=== PATIENT | male | born 1955 | race Caucasian/White ===

== ENCOUNTER 2017-12-03 14:15 | Emergency (ER) | payer OTHER ==
[~2017-12-03] VITALS: Ht 182.9 cm; Wt 164.0 kg
[2017-12-03 14:21] VITALS: TEMP 37; Ht 182.9 cm; Wt 164.0 kg
[2017-12-03] MEDS ORDERED: SODIUM CHLORIDE 0.9% 1000ML 1,000 ML IV STA (14:29)
[2017-12-03] MEDS ORDERED: METOCLOPRAMIDE HCL INJ 5 MG/ML 2 ML VIAL IV. STA (14:29)
--- NOTE | 2017-12-03 14:31 | EMERGENCY ROOM VISIT NOTE ---
History Report prepared by Marlon: Nikki Nichole Under the Supervision of: Dr. Bryan Hicks M.D. First contact with patient: 14:19 Chief Complaint: RECTAL BLEEDING Stated Complaint: ABDOMINAL PAIN/BACK PAIN/ RECTAL BLEEDING History of Present Illness The patient is a 62 year old white male with a past medical history of Parkinson 's and hemorrhoids who presents to the ED with a cc of constant rectal bleeding beginning at 1000 this morning. Positive not being able to urinate. Negative fevers, chills, nausea, vomiting recent trauma, history of colon cancer. He states he has a blockage which he describes as "severe constipation." He denies any pain but does note he has abdominal pressure. 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 He reports he had a colonoscopy 2 years ago but there were no significant findings. Source of History: patient Onset: 1000 this morning Position: abdomen, other (rectum) Quality: pressure Timing: constant Modifying Factors (Worsening): other (straining) Associated Symptoms: + urinary symptoms (not being able to urinate), No fevers, No chills, No nausea, No vomiting Note: Negative recent trauma, history of colon cancer Review of Systems See HPI for pertinent positives and negatives. A total of ten systems were reviewed and were otherwise negative. Past Medical & Surgical Medical Problems: (1) Parkinson disease Family History Omited secondary to age Social History Smoking Status: Former Smoker Smokeless Tobacco Use: Unknown Housing Status: lives alone Current/Historical Medications Scheduled Alfuzosin Hcl (Uroxatral), 10 MG PO DAILY Atorvastatin (Lipitor), Unknown Dose PO DAILY Carbidopa-Levodopa (Rytary 36.25-145 mg), 1 CAP PO QID Pramipexole Dihydrochloride (Mirapex), 0.75 MG PO DAILY Rasagiline Mesylate (Azilect), Unknown Dose PO DAILY Allergies Coded Allergies: No Known Allergies (Unverified , 12/03/17) Physical Exam Vital Signs Date Time Temp Pulse Resp B/P (MAP) Pulse Ox O2 Delivery O2 Flow Rate FiO2 12/03/17 15:05 93 Room Air 12/03/17 14:21 37.0 97 20 122/90 93 Room Air Physical Exam GENERAL: Awake, alert, well-appearing, NAD. Wearing glasses. Obese. HENT: Normocephalic, atraumatic. EYES: Normal conjunctiva. Sclera non-icteric. PERRL. No anisocoria. NECK: Supple. No nuchal rigidity. FROM. RESPIRATORY: CTAB, no rhonchi, wheezing, crackles CARDIAC: RRR, no MRG ABDOMEN: Soft, NTND, BS+ RECTAL: MSK: No chest wall TTP, 1+ LE edema NEURO: GCS 15, CN 2-12 intact, moves all 4s on command. LUE resting tremor. SKIN: No rash or jaundice noted. Medical Decision & Procedures ER Provider Diagnostic Interpretation: Radiology results as stated below per my review and radiologist interpretation: KUB CLINICAL HISTORY: Constipation. COMPARISON STUDY: None. FINDINGS: There is a large amount of stool within the rectum. A moderate amount stool is noted within the colon. There is no evidence for a bowel obstruction. IMPRESSION: 1. No evidence for a bowel obstruction. 2. Large amount of stool within the rectum and moderate amount of stool within the colon. Electronically signed by: Adrián Frias M.D. 12/03/2017 3:44 PM Laboratory Results 12/03/17 14:40 Red Blood Count 4.61, Mean Corpuscular Volume 88.9, Mean Corpuscular Hemoglobin 30.6, Mean Corpuscular Hemoglobin Concent 34.4, Mean Platelet Volume 10.2, Neutrophils (%) (Auto) 87.5, Lymphocytes (%) (Auto) 6.9, Monocytes (%) (Auto) 5.1, Eosinophils (%) (Auto) 0.3, Basophils (%) (Auto) 0.1, Neutrophils # (Auto) 8.42, Lymphocytes # (Auto) 0.66, Monocytes # (Auto) 0.49, Eosinophils # (Auto) 0.03, Basophils # (Auto) 0.01 12/03/17 14:41 Test 12/03/17 14:40 12/03/17 14:41 12/03/17 15:32 White Blood Count 9.62 K/uL (4.8-10.8) Red Blood Count 4.61 M/uL (4.7-6.1) Hemoglobin 14.1 g/dL (14.0-18.0) Hematocrit 41.0 % (42-52) Mean Corpuscular Volume 88.9 fL (80-100) Mean Corpuscular Hemoglobin 30.6 pg (25-34) Mean Corpuscular Hemoglobin Concent 34.4 g/dl (32-36) Platelet Count 169 K/uL (130-400) Mean Platelet Volume 10.2 fL (7.4-10.4) Neutrophils (%) (Auto) 87.5 % Lymphocytes (%) (Auto) 6.9 % Monocytes (%) (Auto) 5.1 % Eosinophils (%) (Auto) 0.3 % Basophils (%) (Auto) 0.1 % Neutrophils # (Auto) 8.42 K/uL (1.4-6.5) Lymphocytes # (Auto) 0.66 K/uL (1.2-3.4) Monocytes # (Auto) 0.49 K/uL (0.11-0.59) Eosinophils # (Auto) 0.03 K/uL (0-0.5) Basophils # (Auto) 0.01 K/uL (0-0.2) RDW Standard Deviation 44.0 fL (36.4-46.3) RDW Coefficient of Variation 13.5 % (11.5-14.5) Immature Granulocyte % (Auto) 0.1 % Immature Granulocyte # (Auto) 0.01 K/uL (0.00-0.02) Prothrombin Time 10.7 SECONDS (9.0-12.0) Prothromb Time International Ratio 1.0 (0.9-1.1) Activated Partial Thromboplast Time 28.7 SECONDS (21.0-31.0) Partial Thromboplastin Ratio 1.1 Anion Gap 9.0 mmol/L (3-11) Est Creatinine Clear Calc Drug Dose 114.6 ml/min Estimated GFR () 86.8 Estimated GFR (Non- 74.8 BUN/Creatinine Ratio 22.1 (10-20) Calcium Level 8.7 mg/dl (8.5-10.1) Total Bilirubin 0.8 mg/dl (0.2-1) Direct Bilirubin 0.2 mg/dl (0-0.2) Aspartate Amino Transf (AST/SGOT) 21 U/L (15-37) Alanine Aminotransferase (ALT/SGPT) 9 U/L (12-78) Alkaline Phosphatase 90 U/L (45-117) Total Protein 6.9 gm/dl (6.4-8.2) Albumin 3.8 gm/dl (3.4-5.0) Lipase 275 U/L (73-393) Urine Color DK YELLOW Urine Appearance CLEAR (CLEAR) Urine pH 5.5 (4.5-7.5) Urine Specific [place] 1.025 (1.000-1.030) Urine Protein NEG (NEG) Urine Glucose (UA) NEG (NEG) Urine Ketones 1+ (NEG) Urine Occult Blood NEG (NEG) Urine Nitrite NEG (NEG) Urine Bilirubin NEG (NEG) Urine Urobilinogen NEG (NEG) Urine Leukocyte Esterase NEG (NEG) Urine WBC (Auto) 1-5 /hpf (0-5) Urine RBC (Auto) 0-4 /hpf (0-4) Urine Hyaline Casts (Auto) 1-5 /lpf (0-5) Urine Epithelial Cells (Auto) 10-20 /lpf (0-5) Urine Bacteria (Auto) NEG (NEG) Laboratory results reviewed by me Medications Administered Medications (Trade) Dose Ordered Sig/Ky Route Start Time Stop Time Status Last Admin Dose Admin Sodium Chloride 1,000 ml @ 999 mls/hr Q1H1M STAT IV 12/03/17 14:29 12/03/17 15:29 DC 12/03/17 14:55 999 MLS/HR Metoclopramide HCl (Reglan Inj) 10 mg NOW STAT IV. 12/03/17 14:29 12/03/17 14:32 DC 12/03/17 14:55 10 MG Senna/Docusate Sodium (Senokot S Tab) 1 tab NOW ONCE PO 12/03/17 16:00 12/03/17 16:01 DC 12/03/17 16:31 1 TAB Sodium Biphosphate/ Sodium Phosphate (Fleet Enema) 132 ml NOW STAT MA 12/03/17 15:57 12/03/17 15:59 DC 12/03/17 16:31 132 ML Lactulose (Chronulac Syrup) 30 gm NOW STAT PO 12/03/17 15:57 12/03/17 15:59 DC 12/03/17 16:31 30 GM ECG Per My Interpretation Indication: other (GI bleed) Rate (beats per minute): 93 Rhythm: sinus rhythm Findings: 1st degree AV block, T-wave inversion (lead III and AVF), other ( normal axis) Comparison ECG Date: no prior available ED Course 1425: The patient was evaluated in room B9. A complete history and physical exam was performed. 1620: I reevaluated on the patient at this time. He had a bowel movement and he feels much better. Discussed results and discharge instructions: He verbalized understanding and agreement. The patient is ready for discharge. Medical Decision The patient is a 62 year old white male with a past medical history of hemorrhoids and Parkinson's who presents to the ED with a cc of constant rectal bleeding beginning at 1000 this morning. Nursing notes reviewed. Ancillary studies and prior records reviewed. Differential diagnosis: Etiologies such as diverticulosis, AVM, coagulopathy, colitis, inflammatory bowel disease, malignancy, Ondina-Alvarado tear, esophagitis, peptic ulcer disease , variceal bleed, gastritis, epistaxis, fissure, hemorrhoids, as well as others were entertained. Patient was seen and evaluated the bedside. The patient is complaining of some mild abdominal pressure and states that he has been fairly constipated last bowel movement 2 days prior. The patient states he is unsure as to whether or not he has passed gas in the last day. The patient does not have any abdominal tenderness. Patient states that this is a common side effect given to his parkinsonian meds. The patient noticed that he has been trying to strain and subsequently noted some blood on the stool as well as on the toilet paper. He states it is bright red in nature. Patient denies any recent trauma. Patient denies nausea vomiting or fevers. Patient did have blood work completed along with KUB. Patient was given fluids as well as some Reglan. He was given only 1 dose as this is an anti- dopaminergic. I believe this is reasonable given the patient's persistent constipation. The patient states he is only taking stool softeners at home. Patient's hemoglobin platelet count and coagulation studies are normal. Given this I do not believe he requires a digital rectal exam. I did do an external show that the patient does have a 2 external hemorrhoids no evidence of any fissures. The patient did have a subsequent bowel movement was feeling much improved. I believe the patient is suitable for outpatient follow-up treatment at this time. Patient was given additional recommendations for constipation. Patient was also given recommendations and warning signs which to return if he has worsening bleeding. Patient was given strict follow-up, discharge, and return precautions. All questions were answered. Patient was deemed suitable for outpatient follow-up at this time. Patient agreed with the plan of care and was safely discharged home. Medication Reconcilliation Current Medication List: was personally reviewed by me Blood Pressure Screening Patient's blood pressure: Normal blood pressure Blood pressure disposition: Did not require urgent referral Impression Primary Impression: Rectal bleeding Additional Impressions: Hemorrhoids Constipation Scribe Attestation The scribe's documentation has been prepared under my direction and personally reviewed by me in its entirety. I confirm that the note above accurately reflects all work, treatment, procedures, and medical decision making performed by me. Departure Information Dispostion Home / Self-Care Referrals No Doctor, Assigned (PCP) Forms HOME CARE DOCUMENTATION FORM, IMPORTANT VISIT INFORMATION, WORK / SCHOOL INSTRUCTIONS Patient Instructions Bleeding Rectal, ED Constipation, ED Hemorrhoids, My [facility] Additional Instructions Please return to the emergency department if you have worsening or recurrent symptoms not amenable to at-home treatment. Please call for a follow-up appointment with her primary care physician. Please take your medications as prescribed. If you have other concerns and/or complaints please feel free to also call your primary care physician's office or return the ED for further evaluation, management, and treatment. You may take 600 mg Ibuprofen every 6 hours as needed for pain/fever with food unless told by your physician not to take NSAIDs. You may take tylenol 650 mg every 6 hours as needed for pain/fever unless told by your physician to not take it or have liver problems. You may take motrin and tylenol separately or at the same time. Take your medications as prescribed. For constipation please consider hydrating liberally with clear liquids, high- fiber diet, leafy greens. Please avoid antihistamines and narcotic medications. You may also consider stool softeners like docusate and senna, laxatives like magnesium citrate or lactulose, suppositories, and/or enemas. Also try not to strain to have a bowel movement and use soft toilet paper. There is strong evidence from multiple randomized trials that increased fiber intake improves symptoms of hemorrhoid bleeding and mild prolapse. You should ingest 20 to 30 g of insoluble fiber per day and drink plenty of water (1.5 to 2 liters per day). Both are necessary to produce regular, soft stools, which reduce straining at defecation. It could take six weeks to fully realize the beneficial effect of fiber. Many commercially available fiber supplements are available to reduce constipation. Many contain either psyllium or methylcellulose. You should refrain from straining or lingering on the toilet. Avoid heavy lifting, sneezing/coughing w/ mouth closed - but cover your mouth. Patients should have regular physical exercise. Limit your intake of fatty foods and alcohol, which can exacerbate constipation. Topical steroids such as Preparation H or Anusol may help. Sitz baths may also help. Apply to your hemorrhoids as described on the packaging. You have been examined and treated today on an emergency basis only. This is not a substitute for, or an effort to provide, complete comprehensive medical care. It is impossible to recognize and treat all injuries or illnesses in a single emergency department visit. It is therefore important that you follow up closely with [facility], your PCP, and/or your specialist(s). Call as soon as possible for an appointment. Thank you for your time and consideration. I look forward to speaking with you again soon. Please don't hesitate to call us if you have any questions. Problem Qualifiers Additional Impressions: Hemorrhoids Hemorrhoid type: unspecified Qualified Codes: K64.9 - Unspecified hemorrhoids Constipation Constipation type: drug induced constipation Qualified Codes: K59.03 - Drug induced constipation
[2017-12-03 14:59] LABS: BASO % 0.1 %; BASO ABS # 0.01 K/uL (0-0.2); EOS % 0.3 %; EOS ABS # 0.03 K/uL (0-0.5); HEMOGLOBIN 14.1 g/dL (14.0-18.0); IG# 0.01 K/uL (0.00-0.02); LYMPH % 6.9 %; LYMPH ABS # 0.66 K/uL (1.2-3.4); MEAN CELL VOLUME 88.9 fL (80-100); MEAN CORPUSCULAR HEMOGLOBIN 30.6 pg (25-34); MEAN CORPUSCULAR HGB CONC 34.4 g/dl (32-36); MEAN PLATELET VOLUME 10.2 fL (7.4-10.4); MONO % 5.1 %; MONO ABS # 0.49 K/uL (0.11-0.59); NEUT % 87.5 %; NEUT ABS # 8.42 K/uL (1.4-6.5); PLATELET COUNT 169 K/uL (130-400); RED CELL DISTRIBUTION WIDTH CV 13.5 % (11.5-14.5); WHITE BLOOD COUNT 9.62 K/uL (4.8-10.8)
[2017-12-03 15:05] VITALS: O2SAT 93
[2017-12-03 15:16] LABS: PTT PATIENT 28.7 SECONDS (21.0-31.0)
[2017-12-03 15:22] LABS: ALBUMIN 3.8 gm/dl (3.4-5.0); CALCIUM 8.7 mg/dl (8.5-10.1); CREATININE 1.06 mg/dl (0.60-1.40); POTASSIUM 4.2 mmol/L (3.5-5.1); TOTAL PROTEIN 6.9 gm/dl (6.4-8.2)
[2017-12-03] MEDS ORDERED: RASA1TAB PO (15:40)
[2017-12-03] MEDS ORDERED: ATOR-22 PO (15:40)
[2017-12-03] MEDS ORDERED: CARB1CAP21 PO (15:40)
[2017-12-03] MEDS ORDERED: PRAM0.75 PO (15:40)
[2017-12-03] MEDS ORDERED: ALFU10TA2 PO (15:40)
--- NOTE | 2017-12-03 15:45 | DIAGNOSTIC IMAGING REPORT ---
DONNA CLINICAL HISTORY: Constipation. COMPARISON STUDY: None. FINDINGS: There is a large amount of stool within the rectum. A moderate amount stool is noted within the colon. There is no evidence for a bowel obstruction. IMPRESSION: 1. No evidence for a bowel obstruction. 2. Large amount of stool within the rectum and moderate amount of stool within the colon. Electronically signed by: Adrián Frias M.D. 12/03/2017 3:44 PM Dictated Date/Time: 12/03/2017 3:43 PM
[2017-12-03] MEDS ORDERED: LACTULOSE SYRUP 20 GM/30 ML UDC PO STA (15:57)
[2017-12-03] MEDS ORDERED: SOD PHOSPHATE/SOD BIPHOSPHATE ENEMA 132 ML BTL PR STA (15:57)
[2017-12-03] MEDS ORDERED: DOCUSATE SODIUM/SENNA 50/8.6MG TAB PO ONE (16:00)
[2017-12-03 16:39] VITALS: BP 140/93; PULSE 88; O2SAT 95
== END 2017-12-03 16:40 | disposition home or self-care (01) ==
LOC: EDBD 14:15 → C.EDB 14:21
DX: K64.9 Unspecified hemorrhoids (principal); K59.03 Drug induced constipation; G20 Parkinson's disease; Z87.891 Personal history of nicotine dependence; Z79.899 Other long term (current) drug therapy; E66.9 Obesity, unspecified